=== PATIENT | female | born 1940 | race Caucasian/White ===

== ENCOUNTER → 2021-02-22 12:07 | Outpatient (CLI) | payer MEDICARE, SELFPAY ==
[2021-02-22 12:55] LABS: Hematocrit 36.1 % (37-47); Hemoglobin 11.6 g/dL (12.0-15.0); Mean Corp Hgb Conc 32.1 g/dL (32-36); Mean Corpuscular Hgb 30.8 pg (27.0-32.0); Mean Corpuscular Volume 95.8 fL (81-99); Platelet Count 267 K/mm3 (150-450); RBC Distribution Width CV 13.4 % (11.6-14.6); RBC Distribution Width SD 47.8 fl (35.1-43.9); Red Blood Count 3.77 M/mm3 (4.2-5.4); White Blood Count 5.8 K/mm3 (4.4-11.0)
[2021-02-22 13:31] LABS: Albumin, Serum 3.6 g/dL (3.2-5.0); BUN 24 mg/dL (7-18); Calcium,Total 9.4 mg/dL (8.5-10.1); Chloride 106 mmol/L (98-107); Creatinine, Serum 1.33 mg/dL (0.55-1.02); EST Glomerular Filtration Rate 41 mL/min (>60); Est Glom Filt Rate - Afr Amer 49 mL/min (>60); Ferritin 610 ng/mL (8-252); Glucose 99 mg/dL (74-106); Iron 55 ug/dL (50-170); Iron Binding Capacity,Total 294 ug/dL (250-450); PERCENT IRON SATURATION 18.7 % (15.0-55.0); Potassium 4.6 mmol/L (3.5-5.1); Sodium Level 138 mmol/L (136-145)
[2021-02-22 13:39] LABS: PTHIN 36.2 pg/mL (18.4-80.1)
== END ==
PROVIDERS: PCP Internal Medicine; Visit Provider Internal Medicine Nephrology
DX: N18.4 Chronic kidney disease, stage 4 (severe) (principal); D63.1 Anemia in chronic kidney disease
CPT/HCPCS: 36415; 80069; 82728; 83540; 83550; 83970; 85027

== ENCOUNTER → 2021-03-27 09:58 | Outpatient (CLI) | payer MEDICARE, SELFPAY ==
[2021-03-27 12:52] LABS: Vitamin D,25 Hydroxy 42.8 ng/mL
[2021-03-27 12:54] LABS: Albumin, Serum 3.7 g/dL (3.2-5.0); BUN 22 mg/dL (7-18); BUN/Creat Ratio 16.5 RATIO (10-20); Calcium,Total 9.2 mg/dL (8.5-10.1); Chloride 106 mmol/L (98-107); Creatinine, Serum 1.33 mg/dL (0.55-1.02); EST Glomerular Filtration Rate 41 mL/min (>60); Est Glom Filt Rate - Afr Amer 49 mL/min (>60); Glucose 102 mg/dL (74-106); Phosphorus 3.9 mg/dL (2.5-4.9); Potassium 4.6 mmol/L (3.5-5.1); Sodium Level 139 mmol/L (136-145)
== END ==
PROVIDERS: PCP Internal Medicine; Visit Provider Internal Medicine Nephrology
DX: N18.4 Chronic kidney disease, stage 4 (severe) (principal)
CPT/HCPCS: 36415; 80069; 82306

== ENCOUNTER 2021-05-04 10:00 | Outpatient (RCR) | payer MEDICARE, SELFPAY | END 2021-05-08 23:59 | LOC: NS 10:00 | PROVIDERS: PCP Internal Medicine; Visit Provider Internal Medicine Nephrology | DX: N18.32 Chronic kidney disease, stage 3b (principal); E87.5 Hyperkalemia | CPT/HCPCS: 97802 ==

== ENCOUNTER 2021-05-18 13:23 | Outpatient (RCR) | payer MEDICARE, SELFPAY | END 2021-06-05 23:59 | LOC: NS 13:23 | PROVIDERS: PCP Internal Medicine; Visit Provider Internal Medicine Nephrology | DX: N18.32 Chronic kidney disease, stage 3b (principal); E87.5 Hyperkalemia; Z71.3 Dietary counseling and surveillance | CPT/HCPCS: 97803 ==

== ENCOUNTER 2021-06-15 15:49 | Outpatient (RCR) | payer MEDICARE, SELFPAY | END 2021-07-06 23:59 | LOC: NS 15:49 | PROVIDERS: PCP Internal Medicine; Visit Provider Internal Medicine Nephrology | DX: N18.32 Chronic kidney disease, stage 3b (principal); E87.5 Hyperkalemia; Z71.3 Dietary counseling and surveillance | CPT/HCPCS: 97803 ==

== ENCOUNTER 2021-08-02 09:58 | Outpatient (RCR) | payer MEDICARE, SELFPAY | END 2021-08-05 23:59 | LOC: NS 09:58 | PROVIDERS: PCP Nurse Practitioner Primary Care; Visit Provider Internal Medicine Nephrology | DX: N18.32 Chronic kidney disease, stage 3b (principal); E87.5 Hyperkalemia; Z71.3 Dietary counseling and surveillance | CPT/HCPCS: 97803 ==

== ENCOUNTER → 2021-08-17 | Outpatient (CLI) | payer MEDICARE, SELFPAY ==
[2021-08-17 12:18] LABS: Hematocrit 33.3 % (37-47); Hemoglobin 10.8 g/dL (12.0-15.0); Mean Corp Hgb Conc 32.4 g/dL (32-36); Mean Corpuscular Hgb 30.9 pg (27.0-32.0); Mean Corpuscular Volume 95.4 fL (81-99); Mean Platelet Vol. 10.9 fl (6.2-12.0); Platelet Count 272 K/mm3 (150-450); RBC Distribution Width CV 13.3 % (11.6-14.6); RBC Distribution Width SD 46.5 fl (35.1-43.9); Red Blood Count 3.49 M/mm3 (4.2-5.4); White Blood Count 5.6 K/mm3 (4.4-11.0)
[2021-08-17 12:32] LABS: Albumin, Serum 3.7 g/dL (3.2-5.0); BUN 42 mg/dL (7-18); BUN/Creat Ratio 24.1 RATIO (10-20); Calcium,Total 9.2 mg/dL (8.5-10.1); Chloride 107 mmol/L (98-107); Creatinine, Serum 1.74 mg/dL (0.55-1.02); EST Glomerular Filtration Rate 30 mL/min (>60); Est Glom Filt Rate - Afr Amer 36 mL/min (>60); Ferritin 646 ng/mL (8-252); Glucose 104 mg/dL (74-106); Iron 69 ug/dL (50-170); Iron Binding Capacity,Total 287 ug/dL (250-450); Phosphorus 4.2 mg/dL (2.5-4.9); Potassium 4.8 mmol/L (3.5-5.1); Sodium Level 138 mmol/L (136-145)
[2021-08-17 12:41] LABS: PTHIN 38.9 pg/mL (18.4-80.1)
== END | disposition home or self-care (01) ==
LOC: POLAB3 10:21
PROVIDERS: PCP Nurse Practitioner Primary Care; Visit Provider Internal Medicine Nephrology
DX: N18.4 Chronic kidney disease, stage 4 (severe) (principal); D63.1 Anemia in chronic kidney disease
CPT/HCPCS: 36415; 80069; 82728; 83540; 83550; 83970; 85027

== ENCOUNTER → 2021-09-06 | Outpatient (CLI) | payer MEDICARE, SELFPAY ==
[2021-09-06 12:59] LABS: Albumin, Serum 3.5 g/dL (3.2-5.0); BUN 28 mg/dL (7-18); BUN/Creat Ratio 19.3 RATIO (10-20); Calcium,Total 9.3 mg/dL (8.5-10.1); Chloride 109 mmol/L (98-107); Creatinine, Serum 1.45 mg/dL (0.55-1.02); EST Glomerular Filtration Rate 37 mL/min (>60); Est Glom Filt Rate - Afr Amer 45 mL/min (>60); Glucose 90 mg/dL (74-106); Phosphorus 3.7 mg/dL (2.5-4.9); Potassium 4.7 mmol/L (3.5-5.1); Sodium Level 142 mmol/L (136-145)
== END | disposition home or self-care (01) ==
LOC: POLAB3 10:45
PROVIDERS: PCP Nurse Practitioner Primary Care; Visit Provider Internal Medicine Nephrology
DX: N18.32 Chronic kidney disease, stage 3b (principal); N17.9 Acute kidney failure, unspecified
CPT/HCPCS: 36415; 80069

== ENCOUNTER 2021-10-03 08:49 | Outpatient (RCR) | payer MEDICARE, SELFPAY | END 2021-10-05 23:59 | LOC: NS 08:49 | PROVIDERS: PCP Nurse Practitioner Primary Care; Referring Provider Internal Medicine Nephrology; Visit Provider Internal Medicine Nephrology | DX: N18.32 Chronic kidney disease, stage 3b (principal); E78.5 Hyperlipidemia, unspecified; Z71.3 Dietary counseling and surveillance | CPT/HCPCS: 97803 ==

== ENCOUNTER → 2021-12-05 | Outpatient (CLI) | payer MEDICARE, SELFPAY ==
[2021-12-05 12:03] LABS: Hematocrit 34.4 % (37-47); Mean Corpuscular Hgb 31.1 pg (27.0-32.0); Mean Corpuscular Volume 97.2 fL (81-99); Mean Platelet Vol. 11.1 fl (6.2-12.0); Platelet Count 253 K/mm3 (150-450); RBC Distribution Width CV 13.2 % (11.6-14.6); RBC Distribution Width SD 47.3 fl (35.1-43.9); Red Blood Count 3.54 M/mm3 (4.2-5.4); White Blood Count 4.3 K/mm3 (4.4-11.0)
[2021-12-05 12:13] LABS: Albumin, Serum 3.4 g/dL (3.2-5.0); BUN 30 mg/dL (7-18); BUN/Creat Ratio 20.3 RATIO (10-20); Calcium,Total 8.9 mg/dL (8.5-10.1); Chloride 108 mmol/L (98-107); Creatinine, Serum 1.48 mg/dL (0.55-1.02); EST Glomerular Filtration Rate 36 mL/min (>60); Est Glom Filt Rate - Afr Amer 43 mL/min (>60); Glucose 95 mg/dL (74-106); Phosphorus 3.8 mg/dL (2.5-4.9); Potassium 4.4 mmol/L (3.5-5.1); Sodium Level 140 mmol/L (136-145)
== END | disposition home or self-care (01) ==
LOC: POLAB3 09:50
PROVIDERS: PCP Nurse Practitioner Primary Care; Visit Provider Internal Medicine Nephrology
DX: N18.32 Chronic kidney disease, stage 3b (principal); D63.1 Anemia in chronic kidney disease
CPT/HCPCS: 36415; 80069; 85027

== ENCOUNTER 2021-12-26 08:28 | Outpatient (RCR) | payer SELFPAY | END 2022-01-05 23:59 | LOC: NS 08:28 | PROVIDERS: PCP Nurse Practitioner Primary Care | DX: Z71.3 Dietary counseling and surveillance (principal); N18.32 Chronic kidney disease, stage 3b; E78.5 Hyperlipidemia, unspecified; Z68.32 Body mass index [BMI] 32.0-32.9, adult | CPT/HCPCS: 97803 ==

== ENCOUNTER 2022-02-08 13:30 | Outpatient (RCR) | payer MEDICARE, SELFPAY ==
--- NOTE | 2022-01-26 10:48 | HP.OTEVAL ---
Patient's Visit Information AURORA MURILLO is a 81 year old F, referred to Occupational Therapy by Dr. Gabe Albert MD, with a diagnosis of De Quervain's; OA L CMC Jt; CTS. Date of Evaluation: 01/25/22 Occupational Therapist: Fariha Gallego, OTR/L - Subjective Pt arrived drove self to therapy, ambulating w/o device. Pt lives alone, manages own yardwork, adls, and iadls. 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 Pt reports she had a Pacemaker placed end of August, noticed pain around L radial wrist/cmc jt 3 wks post pacemaker placement, believes it was d/t pulling on the straps during sx. Reports constant achiness w/ L wrist (radially) during daily activities, doesn't identify any specific adl/iadl as worse than others. Has some pain in R wrist as well. Saw Dr. Albert 01/24/22 and was referred to outpatient OT for custom orthotic, de Quervain's, 1st cmc L hand oa, CTS - ADLs Kitchen: Open jars Comments: difficulty w/ the above + lifting/carrying bags Yard: [place] Comments: Pt worried about raking fall leaves d/t pain Comments: Pt denies any specific adl concerns, rec'd taking notice of everyday activities and which cause more difficulty and make notes to bring to therapy, as Pt aware she likely over looks difficult tasks as she's been living w/ pain x 5 months and compensates as needed - Pain L wrist 5 Pain Intensity Range: 7 - Objective Pt demos decreased L hand strength-- 9lbs less than R hand comparison; increased pain w/ any wrist/hand movment. B hand has decreased pinch strength, likely d/t age/arthritis and possible CTS involvement - ROM Shoulder: WNL Elbow: WFL Forearm: WFL Wrist: R 60/40 L- 50/38 MP: R- 35/0 L- 30/0 IP: R- 55/0 L 50/0 ROM Comments: R UD- 25. R RD- 18. L UD- 18. L RD- 18 - Strength Shoulder: WNL Elbow: WNL Forearm: WFL Clinical Social Worker: R-25# L - 16# Lateral Pinch: -not registering Strength Comments: tripod/lateral pinch B hands <0 on manager of broadcast content test - Sensation Sensation Comments: reports some mild numbness/tingling distal digits- not significantly impacting - Special Tests WHAT Test: Trupti's- positive; tenderness of 1st dorsal compartment - Quick DASH-Disab of Arm,Shoulder& Hand Quick DASH Score: 31.8175 - Goals Goal:: Improve L manager of broadcast content strength to 20#, increased by 4# from eval Goal:: Improve L wrist flex/ext to 55/40 Goal:: <5/10 pain w/ AROM of L wrist to improve pain score w/ daily activities Goal:: Pt will be instructed in 2-3 joint protection principles to reduce pain w/ daily activites. Goal:: Pt will demo understanding and verbalize compliance w/ HEP to improve L wrist strength/ROM as needed for daily activities and to reduce pain. Goal:: OT to fabricate custom orthosis for improved position/pain score of L wrist w/ Pt complying w/ wear schedule - Rehabilitation General Assessment: Pt demos increased pain in L wrist w/ all activity/movement w/ decreased strength which limits all bilateral tasks. Pt does not have a current HEP, and has decreased knowledge of proper body mechanics and joint protection principles which increases her risk for continued pain/debility. Fabricated custom orthosis for L wrist/hand this date per Dr. Albert's orders to promote neutral wrist/hand alignment and reduce pain. Pt very motivated to improve and engage in therapy Rehabilitation Potential: Excellent - Anticipated Interventions A/AAROM/PROM, Strengthening, Modalities, Orthoses, Joint Protection/Energy Conservation, Ergonomic Education, Education re Skin Care and Precautions, Home Program - Visit Plan Frequency: 2x /Week Duration: 3 Weeks General Plan: progress out of custom orthosis to a comfort brace TEXT: Thank you for the opportunity to evaluate your patient. For Medicare and Medicare HMO plans, please review the plan of care and approve it. It will need to be FAXED BACK to us at [phone] for Medicare purposes. Please let me know if there are questions or concerns regarding this plan of care. Physician Signature: Date:
--- NOTE | 2022-03-07 14:46 | HP.OT.NRP ---
AURORA MURILLO was seen in my office for initial evaluation on 01/25/22. The following Plan of Care was established for this patient: Initial Frequency: 2x /Week Initial Duration: 3 Weeks Anticipated Interventions: A/AAROM/PROM, Strengthening, Modalities, Orthoses, Joint Protection/Energy Conservation, Ergonomic Education, Education re Skin Care and Precautions, Home Program This patient was last seen in our office 02/08/22. Pertinent comments regarding their Occupational therapy will appear below: pt was seen for Dequervains/cmc OA. when pt was last seen she was going to have MRI. pt has not scheduled further apts and due to time lapse in services pt d/c. At this point I will be discontinuing this patient from occupational therapy. I would be happy to see this patient again in the future if found appropriate by the physician. Thank you! Madhuri Moreland, OTR/L, CHT
== END 2022-02-08 19:00 | disposition home or self-care (01) ==
LOC: OT 13:30
PROVIDERS: PCP Nurse Practitioner Primary Care; Referring Provider Specialist; Visit Provider Specialist
DX: M65.4 Radial styloid tenosynovitis [de Quervain] (principal); M18.12 Unilateral primary osteoarthritis of first carpometacarpal joint, left hand; G56.02 Carpal tunnel syndrome, left upper limb
CPT/HCPCS: 97035; 97110; 97166; 97530; 97760; 97763

== ENCOUNTER → 2022-02-12 | Outpatient (CLI) | payer MEDICARE, SELFPAY ==
--- NOTE | 2022-02-12 09:52 | MRI_ITS ---
EXAM: MR LEFT UPPER EXTREMITY WITHOUT INTRAVENOUS CONTRAST, WRIST CLINICAL INDICATION: left wrist pain TECHNIQUE: Multiplanar and multisequence MR images of the left wrist without intravenous contrast. This report was created using [employer] report generation technology. COMPARISON: None. FINDINGS: LIGAMENTS: SCAPHOLUNATE: Widening of the scapholunate interosseous interval indicates presence of a full-thickness scapholunate interosseous ligament tear. LUNOTRIQUETRAL: Unremarkable. Intact. TENDONS: FLEXOR COMPARTMENTS: Unremarkable. Intact. No tenosynovitis. EXTENSOR COMPARTMENTS: Tenosynovitis involving the extensor carpi ulnaris tendon. No other abnormalities. NERVES: MEDIAN: Unremarkable. Median nerve is normal in size and signal intensity. ULNAR: Unremarkable. Ulnar nerve is normal in size and signal intensity. MUSCLES: Unremarkable. FLUID: There is also distal radioulnar joint effusion with synovitis. There is also a small joint effusion involving the first carpometacarpal joint. CARTILAGE: Unremarkable. The articular cartilage is preserved. TRIANGULAR FIBROCARTILAGE COMPLEX: Unremarkable. Intact without communicating defect. BONES/JOINTS: Numerous small erosions about the wrist. There is also synovitis. These findings can be seen with rheumatoid arthritis or other similar inflammatory arthritic process. OTHER SOFT TISSUES: No tendon tears. No ganglion. OTHER FINDINGS: Palmar aponeurosis is intact. No tenosynovitis. MRI/Upper Ext Joint Only(Routine) IMPRESSION: Findings can be seen with rheumatoid arthritis or other similar inflammatory arthritic process. Tearing of the scapholunate interosseous ligament with seen name interval widening. Electronically Signed: Jeremi Dubose MD at 3:57 EST ,
[2022-02-12 10:33] VITALS: BP 107/68; PULSE 80; RESP 18; O2SAT 96
[2022-02-12 11:05] VITALS: BP 113/70; PULSE 80; RESP 18; O2SAT 97
== END | disposition home or self-care (01) ==
LOC: MRI 09:44
PROVIDERS: PCP Nurse Practitioner Primary Care; Referring Provider Specialist; Visit Provider Specialist
DX: M25.532 Pain in left wrist (principal)
CPT/HCPCS: 73221

== ENCOUNTER 2022-03-13 08:30 | Outpatient (RCR) | payer SELFPAY | END 2022-04-07 23:59 | LOC: NS 08:30 | PROVIDERS: PCP Nurse Practitioner Primary Care | DX: R69 Illness, unspecified | CPT/HCPCS: 97803 ==

== ENCOUNTER → 2022-03-20 | Outpatient (CLI) | payer MEDICARE, SELFPAY ==
[2022-03-20 14:56] LABS: Albumin, Serum 3.8 g/dL (3.2-5.0); BUN 21 mg/dL (7-18); BUN/Creat Ratio 15.7 RATIO (10-20); Calcium,Total 9.2 mg/dL (8.5-10.1); Chloride 102 mmol/L (98-107); Creatinine, Serum 1.34 mg/dL (0.55-1.02); EST Glomerular Filtration Rate 40 mL/min (>60); Est Glom Filt Rate - Afr Amer 49 mL/min (>60); Glucose 91 mg/dL (74-106); Phosphorus 3.4 mg/dL (2.5-4.9); Potassium 4.3 mmol/L (3.5-5.1); Sodium Level 135 mmol/L (136-145)
== END | disposition home or self-care (01) ==
LOC: POLAB3 09:39
PROVIDERS: PCP Nurse Practitioner Primary Care; Visit Provider Internal Medicine Nephrology
DX: E87.5 Hyperkalemia (principal)
CPT/HCPCS: 36415; 80069

== ENCOUNTER → 2022-05-30 | Outpatient (CLI) | payer MEDICARE, SELFPAY ==
--- NOTE | 2022-05-30 15:16 | NEURO ---
NCS and/or EMG Patient Report Ordering Doctor: Gabe Albert DATE OF SERVICE: 05/30/22 Araseli presents for electrodiagnostic testing of the left upper limb. She reports numbness and tingling of the left hand with intermittent pain in the left wrist. Electrodiagnostic findings: Left median motor response could not be obtained. Left median sensory response at the wrist and palm could not be obtained. Normal left ulnar motor response, including conduction across the elbow. Normal left ulnar F-wave. Sensory responses in the left ulnar and radial nerves are within normal limits. On needle EMG, all muscles tested in the left upper limb, as well as the left cervical paraspinals, showed no evidence of denervation with normal motor unit action potentials. Electrodiagnostic impression: This is an abnormal study in the left upper limb. 1. Electrodiagnostic findings suggestive of left-sided median mononeuropathy. This is likely consistent with a moderate to advanced left carpal tunnel syndrome.
== END | disposition home or self-care (01) ==
PROVIDERS: PCP Nurse Practitioner Primary Care; Visit Provider Specialist
DX: G56.02 Carpal tunnel syndrome, left upper limb (principal)
CPT/HCPCS: 95886; 95910

== ENCOUNTER → 2022-05-30 | Outpatient (CLI) | payer SELFPAY ==
[2022-05-30 17:37] LABS: Potassium 4.3 mmol/L (3.5-5.1)
[2022-06-01 14:34] LABS: Albumin, Serum 3.8 g/dL (3.2-5.0); BUN 21 mg/dL (7-18); BUN/Creat Ratio 16.3 RATIO (10-20); Calcium,Total 9.6 mg/dL (8.5-10.1); Chloride 103 mmol/L (98-107); Creatinine, Serum 1.29 mg/dL (0.55-1.02); EST Glomerular Filtration Rate 42 mL/min (>60); Est Glom Filt Rate - Afr Amer 51 mL/min (>60); Glucose 83 mg/dL (74-106); Phosphorus 3.7 mg/dL (2.5-4.9); Sodium Level 137 mmol/L (136-145)
== END | disposition home or self-care (01) ==
LOC: POLAB3 13:24
PROVIDERS: PCP Nurse Practitioner Primary Care; Visit Provider Internal Medicine Nephrology
DX: N18.32 Chronic kidney disease, stage 3b (principal); E87.5 Hyperkalemia
CPT/HCPCS: 36415; 80069; 84132

== ENCOUNTER 2022-08-15 08:27 | Outpatient (RCR) | payer MEDICARE, SELFPAY | END 2022-09-05 23:59 | LOC: NS 08:27 | PROVIDERS: PCP Nurse Practitioner Primary Care | DX: Z71.3 Dietary counseling and surveillance (principal) | CPT/HCPCS: 97803 ==

== ENCOUNTER 2022-12-12 08:22 | Outpatient (RCR) | payer SELFPAY | END 2023-01-05 23:59 | LOC: NS 08:22 | PROVIDERS: PCP Nurse Practitioner Primary Care | DX: Z71.3 Dietary counseling and surveillance (principal); E66.9 Obesity, unspecified; N18.9 Chronic kidney disease, unspecified | CPT/HCPCS: 97803 ==

== ENCOUNTER 2023-03-14 08:24 | Outpatient (RCR) | payer SELFPAY | END 2023-04-07 23:59 | LOC: NS 08:24 | PROVIDERS: PCP Nurse Practitioner Primary Care | DX: Z71.3 Dietary counseling and surveillance (principal); N18.9 Chronic kidney disease, unspecified; E66.3 Overweight; Z68.29 Body mass index [BMI] 29.0-29.9, adult | CPT/HCPCS: 97803 ==

== ENCOUNTER → 2023-06-05 | Outpatient (CLI) | payer SELFPAY ==
[2023-06-05 11:38] LABS: Hemoglobin 11.3 g/dL (12.0-15.0); Mean Corp Hgb Conc 32.3 g/dL (32-36); Mean Corpuscular Hgb 30.5 pg (27.0-32.0); Mean Corpuscular Volume 94.3 fL (81-99); Mean Platelet Vol. 10.4 fl (6.2-12.0); Platelet Count 264 K/mm3 (150-450); RBC Distribution Width SD 44.9 fl (35.1-43.9); Red Blood Count 3.71 M/mm3 (4.2-5.4); White Blood Count 4.6 K/mm3 (4.4-11.0)
[2023-06-05 11:49] LABS: Albumin, Serum 3.7 g/dL (3.2-5.0); BUN 23 mg/dL (7-18); BUN/Creat Ratio 18.1 RATIO (10-20); Calcium,Total 9.1 mg/dL (8.5-10.1); Chloride 106 mmol/L (98-107); Creatinine, Serum 1.27 mg/dL (0.55-1.02); EST Glomerular Filtration Rate 43 mL/min (>60); Est Glom Filt Rate - Afr Amer 52 mL/min (>60); Glucose 95 mg/dL (74-106); Phosphorus 3.5 mg/dL (2.5-4.9); Potassium 4.2 mmol/L (3.5-5.1); Sodium Level 136 mmol/L (136-145)
[2023-06-05 12:13] LABS: PTHIN 33.5 pg/mL (18.4-80.1)
== END | disposition home or self-care (01) ==
PROVIDERS: PCP Nurse Practitioner Primary Care; Visit Provider Internal Medicine Nephrology
DX: N18.32 Chronic kidney disease, stage 3b (principal)
CPT/HCPCS: 36415; 80069; 83970; 85027

== ENCOUNTER 2023-07-04 08:23 | Outpatient (RCR) | payer MEDICARE, SELFPAY | END 2023-07-07 23:59 | disposition home or self-care (01) | LOC: NS 08:23 | PROVIDERS: PCP Nurse Practitioner Primary Care | DX: Z71.3 Dietary counseling and surveillance (principal); E11.9 Type 2 diabetes mellitus without complications | CPT/HCPCS: 97803 ==

== ENCOUNTER 2023-09-18 08:56 | Outpatient (RCR) | payer MEDICARE, SELFPAY | END 2023-10-06 23:59 | LOC: NS 08:56 | PROVIDERS: PCP Nurse Practitioner Primary Care | DX: Z71.3 Dietary counseling and surveillance (principal); N18.32 Chronic kidney disease, stage 3b | CPT/HCPCS: 97803 ==

== ENCOUNTER 2023-12-24 08:56 | Outpatient (RCR) | payer MEDICARE, SELFPAY | END 2024-01-06 23:59 | LOC: NS 08:56 | PROVIDERS: PCP Nurse Practitioner Primary Care | DX: Z71.3 Dietary counseling and surveillance (principal); N18.32 Chronic kidney disease, stage 3b | CPT/HCPCS: 97803 ==

== ENCOUNTER 2024-03-23 09:49 | Outpatient (RCR) | payer MEDICARE, SELFPAY | END 2024-04-07 23:59 | LOC: NS 09:49 | PROVIDERS: PCP Nurse Practitioner Primary Care | DX: Z71.3 Dietary counseling and surveillance (principal); N18.32 Chronic kidney disease, stage 3b | CPT/HCPCS: 97803 ==

== ENCOUNTER → 2024-06-04 | Outpatient (CLI) | payer MEDICARE, SELFPAY ==
[2024-06-04 11:10] LABS: Hematocrit 35.6 % (37-47); Hemoglobin 11.6 g/dL (12.0-15.0); Mean Corp Hgb Conc 32.6 g/dL (32-36); Mean Corpuscular Hgb 30.8 pg (27.0-32.0); Mean Corpuscular Volume 94.4 fL (81-99); Mean Platelet Vol. 10.2 fl (6.2-12.0); Platelet Count 281 K/mm3 (150-450); RBC Distribution Width CV 13.4 % (11.6-14.6); Red Blood Count 3.77 M/mm3 (4.2-5.4)
[2024-06-04 14:19] LABS: Albumin, Serum 4.4 g/dL (3.4-4.8); BUN 26 mg/dL (4-19); BUN/Creat Ratio 21.2 RATIO (10-20); Calcium 9.5 mg/dL (7.6-11.0); Carbon Dioxide 22.6 mmol/L (22.0-29.0); Chloride 102 mmol/L (96-108); Creatinine, Serum 1.2 mg/dL (0.6-1.0); EST Glomerular Filtration Rate 43 (>60); Ferritin 499 ng/mL (22-378); Glucose 92 mg/dL (70-99); Potassium 4.7 mmol/L (3.3-5.1); Sodium Level 137 mmol/L (133-145)
[2024-06-04 22:02] LABS: Iron 77 ug/dL (50-170); Iron Binding Capacity,Total 306 ug/dL (250-450); Iron Binding Capacity,Unsat 229 ug/dL (228-428); Phosphorus 4.1 mg/dL (2.7-4.5)
== END | disposition home or self-care (01) ==
LOC: POLAB3 10:41
PROVIDERS: PCP Nurse Practitioner Primary Care; Visit Provider Internal Medicine Nephrology
DX: N18.32 Chronic kidney disease, stage 3b (principal); D64.9 Anemia, unspecified
CPT/HCPCS: 36415; 80069; 82728; 83540; 83550; 85027

== ENCOUNTER 2024-07-01 09:56 | Outpatient (RCR) | payer SELFPAY | END 2024-07-06 23:59 | LOC: NS 09:56 | PROVIDERS: PCP Nurse Practitioner Primary Care; Visit Provider Internal Medicine Nephrology | DX: N18.32 Chronic kidney disease, stage 3b (principal); Z71.3 Dietary counseling and surveillance | CPT/HCPCS: 97803 ==

== ENCOUNTER 2024-09-30 09:50 | Outpatient (RCR) | payer MEDICARE, SELFPAY | END 2024-10-05 23:59 | LOC: NS 09:50 | PROVIDERS: PCP Nurse Practitioner Primary Care; Visit Provider Internal Medicine Nephrology | DX: Z71.3 Dietary counseling and surveillance (principal); N18.32 Chronic kidney disease, stage 3b | CPT/HCPCS: 97803 ==

== ENCOUNTER 2024-12-30 09:21 | Outpatient (RCR) | payer MEDICARE, SELFPAY | END 2025-01-05 23:59 | LOC: NS 09:21 | PROVIDERS: PCP Nurse Practitioner Primary Care; Referring Provider Internal Medicine Nephrology; Visit Provider Internal Medicine Nephrology | DX: Z71.3 Dietary counseling and surveillance (principal); E66.9 Obesity, unspecified; N18.32 Chronic kidney disease, stage 3b | CPT/HCPCS: 97803 ==